=== PATIENT | female | born 1995 | race Caucasian/White ===

== ENCOUNTER 2020-04-15 14:17 | Emergency (ER) | payer OTHER, SELFPAY ==
[2020-04-15 14:23] VITALS: BP 122/89; PULSE 72; RESP 12; TEMP 36.7; O2SAT 100; BMI 29.0
--- NOTE | 2020-04-15 14:32 | DI.US.S_ITS ---
PROCEDURE: US OB <= 14 WEEKS FETUS INDICATIONS: spotting 11 weeks hx miscarriage OUTSIDE/PRIOR DATING DATA: Last menstrual period (LMP): 01/26/20. LMP-based estimated date of delivery (ELISEO): 11/01/20 First dating scan (date and location): 04/15/20 . Estimated date of delivery (ELISEO) from first dating scan: 10/29/20 . TECHNIQUE: Real-time scanning was performed of the fetus and maternal pelvic organs, with image documentation. COMPARISON: None. FINDINGS: Embryo: [place]-rump length 5.2 cm correlates with a gestational age of 11 weeks 6 days, +/-5 days, with cardiac activity at 180 beats per minute. Placenta is anterior. A source of hemorrhage is not found. Measurement variability in dating: +/- 4 weeks by LMP, +/- 7 days by mean sac diameter (use before 6 weeks gestation if crown-rump length not able to be measured), +/- 5 days by crown-rump length (up to 8 weeks 6 days gestation), +/- 7 days by crown-rump length (up to 13 weeks 6 days gestation). Maternal organs: Ovaries normal considering gestational status . IMPRESSION: Single living intrauterine gestation without subchorionic hemorrhage. Etiology of reported recent hemorrhage is not identified. Follow-up anatomic survey imaging at 20 weeks gestation is recommended. Dictated by: Dl Lindsay M.D. on 04/15/2020 at 16:44 Approved by: Dl Lindsay M.D. on 04/15/2020 at 16:46
[2020-04-15 14:53] LABS: Add Manual Diff / Slide Review NO; Basophils Absolute Auto 100 /uL (0-100); Basophils Percent Auto 0.6 % (0-2); Eosinophils Absolute Auto 100 /uL (0-450); Eosinophils Percent Auto 0.6 % (2-4); Hematocrit 38.4 % (36-46); Hemoglobin 13.3 g/dL (12.0-16.0); Lymphocytes Absolute Auto 1600 /uL (1100-4500); Lymphocytes Percent Auto 19.3 % (25-40); Mean Corpuscular HGB Conc 34.7 % (30-36); Mean Corpuscular Hemoglobin 29.8 PG (26-34); Mean Corpuscular Volume 85.9 fL (80-100); Monocytes Absolute Auto 600 /uL (0-900); Monocytes Percent Auto 6.5 % (3-14); Neutrophils Absolute Auto 6200 /uL (1500-7000); Platelet Count 324 X10^3/uL (150-400); Red Blood Cell Count 4.47 X10^6/uL (4.0-5.2); Red Cell Distribution Width 12.1 % (11.6-14.8); White Blood Cell Count 8.5 X10^3/uL (4.5-11.0)
[2020-04-15 15:10] LABS: Alanine Aminotransferase 37 IU/L (<35); Albumin 4.1 g/dL (3.5-5.0); Albumin Globulin Ratio 1.3 (1.0-2.8); Alkaline Phosphatase 129 U/L (38-126); Aspartate Aminotransferase 29 IU/L (14-36); BUN Creatinine Ratio 14.7 (6-22); Bilirubin Total 0.9 mg/dL (0.2-1.3); Blood Urea Nitrogen 11 mg/dL (7-17); Calcium 9.3 mg/dL (8.4-10.2); Carbon Dioxide 26 mmol/L (22-32); Chloride 106 mmol/L (98-107); Estimated Glomerular Filt Rate > 60.0 mL/min (>60); Globulin 3.1 g/dL (1.7-4.1); Glucose 97 mg/dL (70-100); HEMOLYSIS < 15 (0-50); Potassium 4.2 mmol/L (3.4-5.1); Sodium 136 mmol/L (137-145); Total Protein 7.2 g/dL (6.3-8.2)
[2020-04-15 15:55] LABS: HCG Quantitative /Beta subunit 53284 mIU/mL
--- NOTE | 2020-04-15 17:56 | PC.NURSE ---
Patient came back on the plane from [place]. She spent 6 hrs on the plane. Vaginal spotting started a couple of days ago. As she was on the plane she noticed her spotting became bright red. She soaked one pad so far.
--- NOTE | 2020-04-15 18:32 | ED_ITS ---
HPI - General Adult General Chief complaint: OB/Uterine Contractions Stated complaint: 11 wks , spotting Time Seen by Provider: 04/15/20 18:20 Source: patient Mode of arrival: Ambulatory Limitations: no limitations History of Present Illness HPI narrative: Patient is a 24-year-old female. approximately 11 weeks EGA here for evaluation of vaginal spotting. This has happened her in the past. She has a known intrauterine . Has had 3 prior miscarriages 2 of which were in the 11-13 week range in she was concerned about her symptoms today. She is not having any cramping. States the spotting occurs when she wipes after urinating. Related Data Allergies Allergy/AdvReac Type Severity Reaction Status Date / Time latex Allergy Severe Rash Verified 04/15/20 14:29 clotrimazole Allergy Mild HIVES Unverified 06/05/17 12:22 Review of Systems Constitutional Constitutional: Denies headache(s) ENT Ears, Nose, Mouth, and Throat: Denies headache(s) Cardiovascular Cardiovascular: Denies chest pain and Denies dyspnea Respiratory Respiratory: Denies dyspnea Gastrointestinal Gastrointestinal: Denies abdominal pain and Reports nausea Genitourinary Genitourinary: Reports vaginal discharge (Spotting) Integumentary/Breasts Skin/Breast: Denies rash Neurologic Neurologic: Denies behavioral changes and Denies headache(s) Psychiatric Psychiatric: Denies behavioral changes Hematologic/Lymphatic On Anticoagulants: No Allergic/Immunologic Allergic/Immunologic: Denies urticaria Patient History Medical History No known health problems (10/15/11) Social History Smoking Status: Never smoker Smoking Status: Never smoker Substance Use Type: does not use Exam Initial Vital Signs Initial Vital Signs: Vital Signs Temperature 98.1 F 04/15/20 14:23 Pulse Rate 72 04/15/20 14:23 Respiratory Rate 12 04/15/20 14:23 Blood Pressure 122/89 04/15/20 14:23 Pulse Oximetry 100 04/15/20 14:23 Const General: cooperative and comfortable Limitations: mental status not altered HENMT Head: normal to inspection and normocephalic Resp Effort & Inspection: normal respiratory effort Cardio Rate: regular rate GI Inspection: non-distended Skin Lesions: no lesions Rashes: no rashes Neuro General: patient alert and patient awake Extrem General: normal to inspection Psych Appearance: grossly normal and well kempt Course Orders Ordered: ED Orders 04/15/20 14:32 US OB <= 14 weeks fetus Stat 04/15/20 14:43 ABO RH Type Stat Complete Blood Count AUTO DIFF Stat Comprehensive Metabolic Panel Stat HCG Quantitative /Beta subunit Stat Vital Signs Vital signs: Vital Signs - 8 hr 04/15/20 18:37 Pulse Rate 78 Respiratory Rate 18 Blood Pressure 117/78 Pulse Oximetry 99 Medical Decision Making Lab Data Lab results reviewed: Yes I reviewed the patient's lab results. Result diagrams: 04/15/20 14:43 04/15/20 14:43 Labs: Lab Results 04/15/20 04/15/20 04/15/20 Range/Units 14:43 14:43 14:43 WBC 8.5 (4.5-11.0) X10^3/uL RBC 4.47 (4.0-5.2) X10^6/uL Hgb 13.3 (12.0-16.0) g/dL Hct 38.4 (36-46) % MCV 85.9 (80-100) fL MCH 29.8 (26-34) PG MCHC 34.7 (30-36) % RDW 12.1 (11.6-14.8) % Plt Count 324 (150-400) X10^3/uL Neut % (Auto) 73.0 (50-75) % Lymph % (Auto) 19.3 L (25-40) % [place] % (Auto) 6.5 (3-14) % Eos % (Auto) 0.6 L (2-4) % Baso % (Auto) 0.6 (0-2) % Neut # (Auto) 6200 (0329-8110) /uL Lymph # (Auto) 1600 (2316-1382) /uL [place] # (Auto) 600 (0-900) /uL Eos # (Auto) 100 (0-450) /uL Baso # (Auto) 100 (0-100) /uL Sodium 136 L (137-145) mmol/L Potassium 4.2 (3.4-5.1) mmol/L Chloride 106 (98-107) mmol/L Carbon Dioxide 26 (22-32) mmol/L BUN 11 (7-17) mg/dL Creatinine 0.75 (0.52-1.04) mg/dL Estimated GFR > 60.0 (>60) mL/min BUN/Creatinine Ratio 14.7 (6-22) Glucose 97 (70-100) mg/dL Calcium 9.3 (8.4-10.2) mg/dL Total Bilirubin 0.9 (0.2-1.3) mg/dL AST 29 (14-36) IU/L ALT 37 H (<35) IU/L Alkaline Phosphatase 129 H (38-126) U/L Total Protein 7.2 (6.3-8.2) g/dL Albumin 4.1 (3.5-5.0) g/dL Globulin 3.1 (1.7-4.1) g/dL Albumin/Globulin Ratio 1.3 (1.0-2.8) HCG, Quant 95155 mIU/mL Blood Type A Positive Imaging Data US - OB: Radiologist's Impression: [place], [place] [address]Ultrasound ReportSigned Patient: Sussy Ellis AMR#: [id number]: 1995Acct:[id number]/Sex: 24 / FDate of Service: 04/15/20Loc: [facility] DAccession Number: [id number] Procedure: US OB <= 14 weeks fetus Ordering Provider: Karen Finley D.O. PROCEDURE: US OB <= 14 WEEKS FETUS INDICATIONS: spotting 11 weeks hx miscarriage OUTSIDE/PRIOR DATING DATA: Last menstrual period (LMP): 01/26/20. LMP-based estimated date of delivery (ELISEO): 11/01/20 First dating scan (date and location): 04/15/20 . Estimated date of delivery (ELISEO) from first dating scan: 10/29/20 . TECHNIQUE: Real-time scanning was performed of the fetus and maternal pelvic organs, with image documentation. COMPARISON: None. FINDINGS: Embryo: [place]-rump length 5.2 cm correlates with a gestational age of 11 weeks 6 days, +/-5 days, with cardiac activity at 180 beats per minute. Placenta is anterior. A source of hemorrhage is not found. Measurement variability in dating: +/- 4 weeks by LMP, +/- 7 days by mean sac diameter (use before 6 weeks gestation if crown-rump length not able to be measured), +/- 5 days by crown-rump length (up to 8 weeks 6 days gestation), +/- 7 days by crown-rump length (up to 13 weeks 6 days gestation). Maternal organs: Ovaries normal considering gestational status . IMPRESSION: Single living intrauterine gestation without subchorionic hemorrhage. Etiology of reported recent hemorrhage is not identified. Follow-up anatomic survey imaging at 20 weeks gestation is recommended. Dictated by: Dl Lindsay M.D. on 04/15/2020 at 16:44 Approved by: Dl Lindsay M.D. on 04/15/2020 at 16:46 MDM Narrative Medical decision making narrative: Ultrasound shows an 11 week 6 day IUP with cardiac motion. She is Rh positive. No indication for RhoGAM. I did discuss the findings with her and I did discuss bleeding during the 1st trimester and return precautions. She expressed understanding and agreement. Discharge Plan Departure Patient Disposition: Home Clinical Impression: Threatened miscarriage Instructions: DI for Vaginal Bleeding During Activity Restrictions/Additional Instructions: Your ultrasound of blood work today looks very reassuring. Continue with all of your instructions given to you by your obstetricians. Return to the emergency department for any new or worsening symptoms
[2020-04-15 18:37] VITALS: BP 117/78; PULSE 78; RESP 18; O2SAT 99
== END 2020-04-15 18:37 | disposition home or self-care (01) ==
PROVIDERS: Emergency Medicine; Emergency Provider Emergency Medicine
DX: O20.0 Threatened abortion (principal); Z3A.11 11 weeks gestation of pregnancy
CPT/HCPCS: 36415; 76801; 80053; 84702; 85025; 86900; 86901; 99283; 99284